=== PATIENT | male | born 1970 | race Caucasian/White ===

== ENCOUNTER 2018-08-25 01:45 | Emergency (ER) | payer MEDICAID ==
[~2018-08-25] VITALS: Ht 170.2 cm; Wt 81.6 kg
--- NOTE | 2018-08-25 01:45 | NUR ---
[facility], [facility]. AMBULATED FROM [facility] TO [facility]
--- NOTE | 2018-08-25 01:50 | NUR ---
PT MARIA ALEJANDRA [facility] PRE-BOOK. AAOX4. C/O L SHOULDER PAIN X2 WEEKS. PER PT " [place] AV[place] AND SLIPPED WHILE ON THE SCOOTER. IT JUST HURTS AND I CANT SLEEP". L SHOULDER TENDER TO TOUCH. LIMITED ROM.TAKES TYLENOL TID WITH NO RELIEF. DENIES ALCOHOL AND DRUG USE. PREVIOUS SMOKER WITH 1 PACK A DAY HABIT, STOPPED X10 DAYS AGO. SETAED IN CHAIR. ERMD NOTIFIED. WILL MONITOR.
[2018-08-25 01:52] VITALS: BP 110/81
[2018-08-25 02:14] VITALS: BP 110/81
--- NOTE | 2018-08-25 02:14 | NUR ---
Patient discharged with v/s stable. Written and verbal after care instructions given and explained. Patient alert, oriented and verbalized understanding of instructions. Ambulatory, in custody. All questions addressed prior to discharge. Patient advised to follow up with PMD. Rx of Prednisone given. Patient educated on indication of medication including possible reaction and side effects. Opportunity to ask questions provided and answered.
== END 2018-08-25 02:14 ==
LOC: MED 01:45
DX: R06.02 Shortness of breath (principal); M25.512 Pain in left shoulder; R05 Cough; F17.200 Nicotine dependence, unspecified, uncomplicated; Z02.89 Encounter for other administrative examinations
CPT/HCPCS: 99283